=== PATIENT | male | born 1975 | race Caucasian/White ===

== ENCOUNTER 2024-05-25 09:43 | Outpatient (AMB) | payer OTHER, SELFPAY ==
--- NOTE | 2024-05-25 09:45 | A.OFFPC_ITS ---
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 A1C is 6.6 today. 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 ?? Prior PCP:? Dr Nicholas Cedeno CT Last office visit/CPE:?about a year Acute issue(s):? Diabetes -A1c today 05/25/24 6.6%. -? Low blood sugars ?? PMHx:?Diabetes, HLD, HTN, Tachycardia SurgHx:? Lasik FHx:? Dad: unknown. Mom: Pulmonary disease. pGF: DM, CAD, PR. Uncle: Early sudden cardiac . mAunt: Cancer SocHx:?Smokes Hookah. EtOH: 2-3 dr a night . No drugs PFSH Medical History (Updated 05/25/24 @ 15:39 by Cleveland Murguia MD) Diabetes Surgical History (Updated 05/25/24 @ 09:57 by Bessy Ham CMA) Hx of LASIK Family History (Updated 05/25/24 @ 10:00 by Bessy Ham CMA) Maternal Grandmother Diabetes Paternal Grandfather Heart attack Social History (Updated 05/25/24 @ 10:04 by Bessy Ham CMA) Household Members: Spouse Housing: House Are you a primary healthcare administration intern to a significant other at home: No Do you presently have visiting nurse or other home services: No Alcohol intake: current Alcohol type: hard liquor Comment: 2 scotches Patient Tobacco Use Status: Never used Tobacco e-Cigarette/Vaping Use: Never Used Agree to transfusion: Yes service: Yes (Not in this country) Current occupational status: employed Current occupation: [employer] Cognitive needs: No Hearing needs: No Vision needs: No Review of Systems Const Denies chills, Reports fatigue, Denies fever(s), Denies headache(s) and Denies weakness ENT Denies dizziness and Denies headache(s) Card Denies chest pain, Denies lightheadedness, Denies dyspnea and Denies other (Palpitations) Resp Denies cough, Denies dyspnea, Denies wheezing and Denies other ( shortness of breath) Musc Denies numbness and Denies tingling Neuro Denies dizziness, Denies headache(s), Denies numbness, Denies tingling, Denies paresthesias and Denies weakness Psych Denies anxiety and Denies depression Endo Reports fatigue Aller/Immun Denies wheezing Physical exam (Primary Care) Vital Signs: Last Vital Signs Pulse 88 05/25/24 09:46 BP 122/62 05/25/24 09:46 Pulse Ox 98 05/25/24 09:46 Oxygen Delivery Method Room Air 05/25/24 09:46 BMI result Body Mass Index 25.4 Tobacco/Smoking Status: Tobacco use Status Tobacco use date assessed 05/25/24 05/25/24 10:00 Patient Tobacco Use Status Never used Tobacco 05/25/24 10:04 e-Cigarette/Vaping Use Never Used 05/25/24 10:04 Const General: no acute distress and well developed Nutritional Appearance: well nourished Orientation/consciousness: patient oriented x3 [facility] Head: Yes normocephalic and Yes atraumatic Eyes General: appearance normal, both eyes and all related structures Pupils: Equal, round and reactive pupils present EOM: EOMs intact bilaterally Resp Effort & Inspection: normal respiratory effort Auscultation: clear to auscultation bilaterally Cardio Rate: regular rate Rhythm: regular rhythm Heart sounds: S1 normal heart sound present, S2 normal heart sound present, no gallops, no murmurs and no rubs Neuro General: patient oriented x3 and gait normal Cranial nerves: Yes Equal, round and reactive pupils present Psych Affect: normal affect Assessment and Plan Assessment & Plan (1) Diabetes: Code(s): E11.9 - Type 2 diabetes mellitus without complications Plan: A1c?6.6%?on?patient's?continuous?glucose?monitor.??Goal?is?less?than?7% Fairly?good?control?but?patient?notes?some?low?blood?sugars. He?does?not?always?eat?regular?meals Encouraged?regular?meals?and?snacks?if?necessary. If?that?is?not?helping?he?will?decrease?his?Ozempic?from?0.5?mg?to?0.25?mg?weekl y. (2) Hyperlipidemia: Code(s): E78.5 - Hyperlipidemia, unspecified Plan: Continue?rosuvastatin Check?labs (3) Hypertension: Code(s): I10 - Essential (primary) hypertension Plan: Blood?pressure?is?controlled. He?is?on?metoprolol?primarily?for?tachycardia He?can?trial?decreasing?this?as?he?sometimes?has?fatigue;?metoprolol trial?12.5?mg?daily (4) Fatigue: Code(s): R53.83 - Other fatigue Plan: Checking?labs?including?CBC?and?testosterone.??Also?thyroid,?electrolytes?and?li jorden?enzymes. Encouraged?patie nt?to?decrease?alcohol?intake?and?get?more?physiologic?sleep.??Also?encouraged?e xercise?earlier?in?his?day?to?help?with?sleep. (5) Difficulty sleeping: Code(s): G47.9 - Sleep disorder, unspecified Plan: As?above,?likely?secondary?to?alcohol?rebound?after?consuming?too?much?alcohol. Encouraged?weaning?down Encouraged?exercise?earlier?in?his?day?to?help?with?sleepiness (6) History of tachycardia: Code(s): Z87.898 - Personal history of other specified conditions Plan: EKG:??Normal?sinus?rhythm?with?HR?84?beats?per?minute?on?metoprolol,?sinus?arrhy thmia, normal?axis,?no?hypertrophy,?no?ST-T-wave?changes. Controlled?on?metoprolol No?change?to?regimen (7) Alcohol use disorder: Code(s): F10.90 - Alcohol use, unspecified, uncomplicated Plan: Encouraged?weaning?down?alcohol?use. (8) Laboratory exam ordered as part of routine general medical examination: Code(s): Z00.00 - Encounter for general adult medical examination without abnormal findings Plan: Check?lab Orders: Orders Comprehensive [place]. Panel Fast Today Z00.00 - Encounter for general adult medical examination without abnormal findings Prostate Specific Antigen Scr Today Z12.5 - Encounter for screening for malignant neoplasm of prostate TSH reflex Free T4 Today Z00.00 - Encounter for general adult medical examination without abnormal findings Testosterone, Free/Total Today R53.83 - Other fatigue Complete Blood Count Auto Diff Today R53.83 - Other fatigue, Z00.00 - Encounter for general adult medical examination without abnormal findings AMB EKG-In Office Today F10.90 - Alcohol use, unspecified, uncomplicated, I10 - Essential (primary) hypertension, R53.83 - Other fatigue, Z87.898 - Personal history of other specified conditions Lipid Panel Today Z00.00 - Encounter for general adult medical examination without abnormal findings Microalbumin, Random (w Creat) Today I10 - Essential (primary) hypertension UA and rflx microscopic Today Z00.00 - Encounter for general adult medical examination without abnormal findings Referrals Gastroenterology Referral Z12.11 - Encounter for screening for malignant neoplasm of colon Coding Level of Care Code New Pt Level 3 (78227) Diagnoses Diabetes E11.9 Hyperlipidemia E78.5 Hypertension I10 Fatigue R53.83 Difficulty sleeping G47.9 History of tachycardia Z87.898 Alcohol use disorder F10.90 Laboratory exam ordered as part of routine general medical examination Z00.00
[2024-05-25 09:46] VITALS: BP 122/62; PULSE 88; O2SAT 98; BMI 25.4
== END 2024-05-25 11:48 | disposition home or self-care (01) ==
PROVIDERS: PCP Family Medicine; Visit Provider Family Medicine
DX: E11.9 Type 2 diabetes mellitus without complications (principal); E78.5 Hyperlipidemia, unspecified; I10 Essential (primary) hypertension; R53.83 Other fatigue; G47.9 Sleep disorder, unspecified; Z87.898 Personal history of other specified conditions; F10.90 Alcohol use, unspecified, uncomplicated; Z00.00 Encounter for general adult medical examination without abnormal findings
CPT/HCPCS: 99203

== ENCOUNTER 2024-05-25 11:21 | Outpatient (REF) | payer OTHER, SELFPAY | END 2024-05-25 11:22 | disposition home or self-care (01) | LOC: HO.WFDLDS 11:21 | PROVIDERS: Visit Provider Family Medicine | DX: Z13.89 Encounter for screening for other disorder (principal) ==

== ENCOUNTER 2024-05-25 11:23 | Outpatient (REF) | payer OTHER, SELFPAY | END 2024-05-25 11:24 | disposition home or self-care (01) | LOC: HO.WFDLDS 11:23 | PROVIDERS: Visit Provider Family Medicine | DX: Z13.89 Encounter for screening for other disorder (principal) ==

== ENCOUNTER 2024-05-25 11:24 | Outpatient (REF) | payer OTHER, SELFPAY | END 2024-05-25 11:25 | disposition home or self-care (01) | LOC: HO.WFDLDS 11:24 | PROVIDERS: Visit Provider Family Medicine | DX: Z13.89 Encounter for screening for other disorder (principal) ==

== ENCOUNTER 2024-05-25 11:33 | Outpatient (REF) | payer OTHER, SELFPAY | END 2024-05-25 11:34 | disposition home or self-care (01) | LOC: HO.WFDLDS 11:33 | PROVIDERS: Visit Provider Family Medicine | DX: Z13.89 Encounter for screening for other disorder (principal) ==

== ENCOUNTER 2024-05-25 11:43 | Outpatient (REF) | payer OTHER, SELFPAY ==
[2024-05-25 14:11] LABS: Appearance Urine Turbid; Color Urine Yellow; Glucose Urine UA Negative (Negative); Leukocyte Esterase Urine Negative (Negative); Nitrite Urine Negative (Negative); PH 5.5 (5.0-9.0); Specific Gravity - Urine 1.025 (1.005-1.025); Urine Blood Negative (Negative); Urine Ketones Trace mg/dL (Negative); Urine Protein Trace mg/dL (Neg-Trace)
[2024-05-25 14:16] LABS: MANUAL DIFF FLAG NO
[2024-05-25 14:24] LABS: Basophils Percent Auto 0.9 % (0-2); Eosinophils Absolute Auto 0.2 X10*3/uL (0.0-0.4); Eosinophils Percent Auto 5.5 % (0-4); Hematocrit 43.2 % (42.0-52.0); Hemoglobin 14.8 g/dl (14.0-18.0); Imm Gran Abs Auto 0.07 X10*3/uL (0.00-0.03); Imm Gran Pct Auto 1.6 % (0.0-0.4); Lymphocytes Absolute Auto 1.4 X10*3/uL (1.2-4.9); Mean Corpuscular HGB Conc 34.3 g/dl (31.0-36.0); Mean Corpuscular Volume 96.4 fL (80.0-98.0); Mean Platelet Volume 10.5 fL (9.4-12.4); Monocytes Absolute Auto 0.4 X10*3/uL (0.1-1.2); Neutrophils Absolute Auto 2.3 x10*3/uL (2.0-8.3); Platelet Count 225 X10*3/uL (160-400); Red Blood Count 4.48 X10*6/uL (4.60-5.80); Red Cell Distribution Width 13.1 % (11.0-16.0); White Blood Count 4.4 X10*3/uL (4.8-10.8)
[2024-05-25 14:57] LABS: Creatinine Urine 232.72 mg/dL; Microalbum/Creatinine Ratio Ur 13.7 ug/mg cr (<30)
[2024-05-25 15:13] LABS: Prostate Specific Antigen Scr 0.99 ng/mL (<0.05-4.0)
[2024-05-25 15:17] LABS: Alanine Aminotransferase 62 U/L (0-40); Albumin Level 5.1 g/dL (3.5-5.0); Alkaline Phosphatase 57 U/L (39-117); Anion Gap 12 (12-20); Aspartate Amino Transferase 36 U/L (5-37); Bilirubin Total 0.4 mg/dL (0.0-1.0); Blood Urea Nitrogen 15 mg/dL (9-16); Calcium 9.7 mg/dL (8.4-10.2); Carbon Dioxide 26 mmol/L (22-29); Chloride 109 mmol/L (96-108); Cholesterol 156 mg/dL (<200); Estimated Glomerular Filt Rate > 60; Glucose Fasting 103 mg/dL (60-99); HDL Cholesterol 45 mg/dL (>40); LDL Cholesterol Calculated 47 mg/dL (<100); Potassium 4.1 mmol/L (3.3-5.1); Sodium 143 mmol/L (135-145); TSH reflex Free T4 1.12 uIU/mL (0.32-4.0); Total Protein 8.5 g/dL (6.5-8.0); Triglycerides 323 mg/dL (<150)
[2024-05-30 12:43] LABS: Testosterone, Free 68.6 pg/mL (35.0-155.0); Testosterone, Total 293 ng/dL (250-1100)
== END 2024-05-25 11:44 | disposition home or self-care (01) ==
LOC: HO.WFDLDS 11:43
PROVIDERS: Visit Provider Family Medicine
DX: Z00.00 Encounter for general adult medical examination without abnormal findings (principal); I10 Essential (primary) hypertension; R53.83 Other fatigue; Z12.5 Encounter for screening for malignant neoplasm of prostate
CPT/HCPCS: 36415; 80053; 80061; 81003; 82043; 82570; 84153; 84402; 84403; 84443; 85025

== ENCOUNTER 2024-06-06 08:06 | Outpatient (AMB) | payer OTHER, SELFPAY ==
--- NOTE | 2024-06-06 08:09 | MHC.PC.OV ---
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 Reports that he became ill about 10 days ago after smoking at a [employer] bar with a group of people. Not only himself but the entire group became ill with URI symptoms. His symptoms include sore throat, pressure behind the eyes, pain in cheeks, pressure in his ears, thick nasal discharge. Initially was able to expectorate the nasal discharge however reports he has not able at this time as the secretions are so thick. His symptoms have worsened since onset. He is tried several kgio-gwx-enoncmz medications without relief. He is flying internationally on the 18th of this month. Awake alert NAD Sclera and conjunctiva clear bilat Nares with mucoid d/c , turbinates pale & edematous, + maxillary sinus tenderness with palpation bilat TM intact bilat w/ mucoid effusions R>L MMM, pharynx WNL, + PND Tachycardic, regular rythym LS CTAB Plan: Augmentin Flonase and PRN afrin for travel only. [facility] Medical History (Updated 05/25/24 @ 15:39 by Cleveland Murguia MD) Diabetes Surgical History (Updated 05/25/24 @ 09:57 by Bessy Ham CMA) Hx of LASIK Family History (Updated 05/25/24 @ 10:00 by Bessy Ham CMA) Maternal Grandmother Diabetes Paternal Grandfather Heart attack Social History (Updated 05/25/24 @ 10:04 by Bessy Ham CMA) Household Members: Spouse Both parents involved: No Caregiver staying overnight: No Housing: House Are you a primary aged or disabled carer to a significant other at home: No Do you presently have visiting nurse or other home services: No Alcohol intake: current Alcohol type: hard liquor Comment: 2 scotches Patient Tobacco Use Status: Never used Tobacco e-Cigarette/Vaping Use: Never Used Agree to transfusion: Yes service: Yes (Not in this country) Current occupational status: employed Current occupation: [employer] Cognitive needs: No Hearing needs: No Vision needs: No Physical exam (Primary Care) Vital Signs: Last Vital Signs Temp 97.7 F 06/06/24 08:14 Pulse 110 H 06/06/24 08:14 BP 110/82 06/06/24 08:14 Pulse Ox 96 06/06/24 08:14 Oxygen Delivery Method Room Air 06/06/24 08:14 Tobacco/Smoking Status: Tobacco use Status Tobacco use date assessed 05/25/24 06/06/24 08:11 Patient Tobacco Use Status Never used Tobacco 06/06/24 08:11 e-Cigarette/Vaping Use Never Used 06/06/24 08:11 Assessment and Plan Assessment & Plan (1) Acute bacterial sinusitis: Code(s): J01.90 - Acute sinusitis, unspecified; B96.89 - Other specified bacterial agents as the cause of diseases classified elsewhere Medications: New amoxicillin-pot clavulanate 875-125 mg 1 tab PO BID 7 days 14 tabs 0RF fluticasone propionate 50 mcg/actuation administer into each nostril 1 spray intranasal BID 16 grams 0RF Patient Instructions: Consider using Afrin nasal decongestant spray 30 minute before you fly as needed to decompress ears and nose to provide comfort while flying otherwise do NOT use Afrin What Is It? Sinuses are air-filled spaces behind the bones of the upper face: between the eyes and behind the forehead, nose and cheeks. The lining of the sinuses are made up of cells with tiny hairs on their surfaces called cilia. Other cells in the lining produce mucus. The mucus traps germs and pollutants and the cilia push the mucus out through narrow sinus openings into the nose. When the sinuses become inflamed or infected, the mucus thickens and clogs the openings to one or more sinuses. Fluid builds up inside the sinuses causing increased pressure. Also bacteria can become trapped, multiply and infect the lining. This is sinusitis. Prevention There are some measures you can take to decrease your risk of developing sinusitis. If you smoke cigarettes, you should quit. The smoke can irritate nasal passageways and increase the likelihood of infection. Nasal allergies can trigger sinus infections, too. By identifying the allergen (the substance causing the allergic reaction) and avoiding it, you can help prevent sinusitis. If you have congestion from a cold or allergies, the following may help to reduce the risk of developing sinusitis: Drink lots of water. This thins nasal secretions and keeps mucous membranes moist. Use steam to soothe nasal passages. Breathe deeply while standing in a hot shower, or inhale the vapor from a basin filled with hot water while holding a towel over your head. Avoid blowing your nose with great force, which can push bacteria into the sinuses. Some doctors advise periodic home nasal washings to clear secretions. This may help prevent, and also treat, sinus infections. Treatment Many sinus infections improve without treatment. However, several medications may speed recovery and reduce the chance that an infection will become chronic. Decongestants - Congestion often triggers sinus infections, and decongestants can open the sinuses and allow them to drain. Several are available: Pseudoephedrine (Sudafed) is available without prescription, alone or in combination with other medications in multi-symptom cold and sinus remedies. Pseudoephedrine can cause insomnia, racing pulse and jitteriness. Do not use if you have high blood pressure or a heart condition. Phenylephrine (such as Sudafed PE) is an alternative dptr-gnm-mcfaezb oral decongestant. If you take products containing oral phenylephrine, check with the pharmacist to be certain there is no interaction with other medications you take. Oxymetazoline (Lasha Joyce and others) and phenylephrine (Bryan-Synephrine and others) are found in nasal sprays. They are effective and may be less likely to cause the side effects seen with pseudoephedrine. However, using a nasal decongestant for more than three days can cause worse symptoms when you stop the medication. This is called the rebound effect. Antihistamines - These medications help to relieve the symptoms of nasal allergies that lead to inflammation and infections. However, some doctors advise against using antihistamines during a sinus infection because they can cause excessive drying and slow the drainage process. Leoo-aak-vzzcohi antihistamines include diphenhydramine (Benadryl and others), chlorpheniramine (Chlor-Trimeton and others) and loratadine (Claritin). Fexofenadine (Xiomara) and cetrizine (Zyrtec) are available by prescription. Nasal steroids - Anti-inflammatory sprays such as mometasone (Nasonex) and fluticasone (Flonase), both available by prescription, reduce swelling of nasal membranes. Like antihistamines, nasal steroids can be most useful for those who have nasal allergies. Nasal steroids tend to produce less drying than antihistamines. Unlike nasal decongestants, nasal steroids can be used for prolonged periods. Saline nasal sprays - These salt-water sprays are safe to use and can provide some relief by adding moisture to the nasal passages, thinning mucus secretions and helping to flush out any bacteria that may be present. Pain relievers - Acetaminophen (Tylenol), ibuprofen (Advil, Motrin and others) or naproxen (Aleve) can be taken sinus pain. Antibiotics - Your doctor may prescribe an antibiotic if he or she suspects that a bacterial infection is causing your sinusitis. If you start taking an antibiotic, complete the entire course so that the infection is completely killed off. Not all cases of sinusitis require antibiotic treatment: Talk with your doctor about whether an antibiotic is right for you. Keep in mind that antibiotics can cause side effects, such as allergic reactions, rash and diarrhea. In addition, overusing antibiotics eventually leads to the spread of bacteria that no longer can be killed by the most commonly prescribed antibiotics. When To Call A Professional Contact a doctor if you experience facial pain along with a headache and fever, cold symptoms that last longer than seven to 10 days, or persistent green discharge from the nose. If your symptoms don't improve within a week of beginning treatment, call your doctor. Call sooner if symptoms are getting worse. If you have repeated bouts of acute sinusitis, you may have allergies or another treatable cause of sinus congestion. Ask your doctor for advice. Coding Level of Care Code Est Pt Level 3 (58485) Diagnoses Acute bacterial sinusitis J01.90; B96.89
[2024-06-06 08:14] VITALS: BP 110/82; PULSE 110; TEMP 36.5; O2SAT 96
== END 2024-06-06 08:29 | disposition home or self-care (01) ==
PROVIDERS: PCP Family Medicine; Visit Provider Nurse Practitioner Family
DX: J01.90 Acute sinusitis, unspecified (principal); B96.89 Other specified bacterial agents as the cause of diseases classified elsewhere
CPT/HCPCS: 99213

== ENCOUNTER 2024-07-31 13:22 | Outpatient (AMB) | payer OTHER, SELFPAY ==
[2024-07-31 13:30] VITALS: BP 116/77; PULSE 105; BMI 24.6
--- NOTE | 2024-07-31 13:30 | MHC.OFFVIS ---
Vital Signs 07/31/24 13:30 Height 5 ft 8 in Weight 161 lb 13.109 oz BMI 24.6 BP 116/77 Blood Pressure Location Rt brachial Position Sitting Pulse 105 H Intake Visit Reasons: Encounter for screening colonoscopy Intake Note: Jef presents as a new patient for colonoscopy screening. CC: Patient reports that he has been on Ozempic for about 6 months. He c/o nausea, constipation, diarrhea, abdominal pain, and GERD. He states that he was diagnosed with diverticulosis by a previous. Denies having other GI symptoms. Public Health Nurse Required: No Accompanied by: Self / Same As Patient Allergies fruits Allergy (Severe, Uncoded 07/31/24 13:36) Anaphylaxis nuts Allergy (Severe, Uncoded 07/31/24 13:36) Anaphylaxis HPI HPI Encounter for screening colonoscopy: Details: 49-year-old male here for preprocedural meeting to discuss a screening colonoscopy. He is referred by Zaida Diaz. PMX Hypertension High cholesterol Alcohol use disorder Tachycardia Diabetes Insomnia * SURGICAL HISTORY Lasix surgery BIlateral inguinal hernia * ALLERGIES: NKDA * Pneumoflex Systems LABS: Laboratory Tests 05/25/24 11:38 WBC 4.4 L Hgb 14.8 Hct 43.2 Plt Count 225 Estimated GFR > 60 Total Bilirubin 0.4 AST 36 ALT 62 H Alkaline Phosphatase 57 TSH 1.12 TODAY'S VISIT This is his first colonoscopy. he is having some bowel irritability with soft stools but incomplete evacuation several times a day. Sent senna for trial. No upper GI problems. He denies any cardiac or respiratory problems. There are no prior problems with anesthesia or sedation. NO known FHX crc or polyps. Return office visit as needed if the senna it does not work for him and or after the colonoscopy [facility] Medical History (Updated 07/31/24 @ 14:11 by STACEY Solomon) Laboratory exam ordered as part of routine general medical examination Screening for colon cancer Diabetes Surgical History (Updated 07/31/24 @ 16:05 by STACEY Solomon) H/O bilateral inguinal hernia repair Hx of LASIK Family History Maternal Grandmother Diabetes Paternal Grandfather Heart attack Social History (Updated 07/31/24 @ 13:38 by PERRY Noonan) Household Members: Spouse Both parents involved: No Caregiver staying overnight: No Housing: House Are you a primary insurance healthcare consultant to a significant other at home: No Do you presently have visiting nurse or other home services: No Alcohol intake: current Alcohol type: hard liquor Comment: 2 scotches Patient Tobacco Use Status: Never used Tobacco e-Cigarette/Vaping Use: Never Used Use of substances other than those prescribed or required for medical reasons: No Agree to transfusion: Yes service: Yes (Not in this country) Current occupational status: employed Current occupation: [employer] Cognitive needs: No Hearing needs: No Vision needs: No Review of Systems Const Denies fatigue, Denies fever(s), Denies night sweats, Denies poor appetite and Denies weight loss ENT Reports Normal hearing present, Denies dental pain, Denies dysphagia, Denies hearing loss, Denies mouth pain, Denies odynophagia, Denies throat swelling, Denies tongue swelling and Reports other (Dentition adequate) Card Reports no additional complaints Resp Reports no additional complaints GI Details: Denies abdominal pain, Denies melena, Denies bloating, Denies hematochezia, Reports constipation, Denies GI cramping, Denies dysphagia, Denies excessive flatus, Denies early satiety, Denies heartburn, Denies diarrhea, Denies nausea, Denies odynophagia, Denies vomiting and Denies hematemesis Skin/Breast Denies pruritus, Denies lesions, Denies rash and Denies jaundice Neuro Reports Normal hearing present and Denies Abnormal speech present Endo Denies fatigue Aller/Immun Denies throat swelling and Denies tongue swelling Physical Exam Vital Signs: Last Vital Signs Pulse 105 H 07/31/24 13:30 BP 116/77 07/31/24 13:30 BMI result Body Mass Index 24.6 Const General: cooperative, no acute distress, well developed and well groomed Nutritional Appearance: average body habitus and well nourished Orientation/consciousness: oriented to person, oriented to place and oriented to time Limitations: No language barrier HEENT Head: Yes normocephalic and Yes atraumatic Eyes General: appearance normal, both eyes and all related structures Pupils: Equal, round and reactive pupils present Neck Neck: Yes normal visual inspection and Yes no lymphadenopathy Thyroid: Thyroid normal Resp Effort & Inspection: normal respiratory effort and able to speak in complete sentences Auscultation: clear to auscultation bilaterally Cardio Rate: regular rate Rhythm: regular rhythm Heart sounds: Normal, physiologic split S2 sound present Peripheral pulses: radial pulses present and posterior tibial pulses present GI Inspection: No distended and No Abdominal panniculus present Palpation (GI): Soft to palpation, nontender, no guarding, not rigid and No hepatosplenomegaly present Percussion: Yes normal to percussion Auscultation: normal bowel sounds Rectal Exam - Male: Yes deferred Skin General skin exam: no rashes or lesions noted, turgor normal, skin not dry, no jaundice, No spider nevi and no striae Rashes: no rashes Nails: normal Neuro General: oriented to person, oriented to place and oriented to time Cranial nerves: Yes Equal, round and reactive pupils present and Yes Normal hearing present Speech: No Abnormal speech present Extrem General: Yes normal to inspection, No clubbing, No cyanosis and No edema Psych Appearance: grossly normal and well kempt Mental Status: mental status grossly normal Speech and movement: Normal speech and movement present Affect: normal affect Attitude: cooperative Thought process: Normal thought process present and not confabulating Thought content: Normal thought content present Insight: Fair insight present (Psych) Judgement: Fair judgement present (Psych) Results Reviewed Results Reviewed: Laboratory Tests 05/25/24 11:38 WBC 4.4 L Hgb 14.8 Hct 43.2 Plt Count 225 Estimated GFR > 60 Total Bilirubin 0.4 AST 36 ALT 62 H Alkaline Phosphatase 57 TSH 1.12 Assessment & Plan Assessment & Plan (1) Encounter for screening colonoscopy: Code(s): Z12.11 - Encounter for screening for malignant neoplasm of colon (2) Pre-op examination: Code(s): Z01.818 - Encounter for other preprocedural examination Category: Medical (3) Chronic idiopathic constipation: Code(s): K59.04 - Chronic idiopathic constipation Category: Medical Plan This is his first colonoscopy. he is having some bowel irritability with soft stools but incomplete evacuation several times a day. Sent senna for trial. No upper GI problems. He denies any cardiac or respiratory problems. There are no prior problems with anesthesia or sedation. NO known FHX crc or polyps. Return office visit as needed if the senna it does not work for him and or after the colonoscopy Orders: Orders Colonoscopy - GI Use Only Today Z01.818 - Encounter for other preprocedural examination Medications: New peg 3350-electrolytes 236-22.74-6.74 -5.86 gram (Golytely) until fecal effluent is clear; do not exceed a total volume of 2,000 mL 240 mL PO Q10M 1 day 4,000 mL 0RF Z12.11 - Encounter for screening for malignant neoplasm of colon bisacodyl (Dulcolax (bisacodyl)) 10 mg (2 x 5 mg) PO BEDTIME 2 days 4 tabs 0RF sennosides (Senna Laxative) 17.2 mg (2 x 8.6 mg) PO BEDTIME 60 tabs 6RF K59.04 - Chronic idiopathic constipation Coding Level of Care Code New Pt Level 3 (39558) Diagnoses Encounter for screening colonoscopy Z12.11 Pre-op examination Z01.818 Chronic idiopathic constipation K59.04
== END 2024-07-31 14:16 | disposition home or self-care (01) ==
PROVIDERS: PCP Family Medicine; Referring Provider Family Medicine; Visit Provider Nurse Practitioner
DX: Z01.818 Encounter for other preprocedural examination (principal); Z12.11 Encounter for screening for malignant neoplasm of colon; K59.04 Chronic idiopathic constipation
CPT/HCPCS: 99202

== ENCOUNTER → 2024-07-31 13:22 | Outpatient (BNVA) | payer OTHER, SELFPAY | PROVIDERS: PCP Family Medicine; Visit Provider Nurse Practitioner ==

== ENCOUNTER 2024-08-17 14:55 | Outpatient (AMB) | payer OTHER, SELFPAY ==
--- NOTE | 2024-08-17 15:04 | A.OFFPC_ITS ---
Vital Signs 08/17/24 15:08 Height 5 ft 8 in Weight 167 lb 6 oz BMI 25.4 BP 110/70 Blood Pressure Location Rt brachial Position Sitting Respiration 16 Pulse 104 H Pulse Source Pulse Oximeter Temp 97.7 F Temp Source Tympanic Pulse Oximetry (%) 98 Oxygen Delivery Method Room Air Intake Visit Reasons: annual Intake Note: CPE Allergies fruits Allergy (Severe, Uncoded 07/31/24 13:36) Anaphylaxis nuts Allergy (Severe, Uncoded 07/31/24 13:36) Anaphylaxis Tobacco use date assessed: 05/25/24 Dental Screening Dental Screen Date: 08/17/24 Did you have a dental visit in the last 12 months?: Yes Did you have a dental problem in the last 6 months where you did not have access to dental care?: No Was dental information given to patient?: Patient has dentist [facility] Medical History (Updated 08/17/24 @ 15:49 by Cleveland Murguia MD) Screening for colon cancer Laboratory exam ordered as part of routine general medical examination Diabetes Surgical History (Updated 07/31/24 @ 16:05 by STACEY Solomon) H/O bilateral inguinal hernia repair Hx of LASIK Family History Maternal Grandmother Diabetes Paternal Grandfather Heart attack Social History (Updated 08/17/24 @ 15:06 by Debbie Yeh MA) Household Members: Spouse Both parents involved: No Caregiver staying overnight: No Housing: House Are you a primary managed care nurse to a significant other at home: No Do you presently have visiting nurse or other home services: No Alcohol intake: current Alcohol type: hard liquor Comment: 2 scotches Patient Tobacco Use Status: Never used Tobacco e-Cigarette/Vaping Use: Never Used Agree to transfusion: Yes service: Yes (Not in this country) Current occupational status: employed Current occupation: [employer] Cognitive needs: No Hearing needs: No Vision needs: No Questionnaire PHQ-9 Over the last 2 weeks, how often have you been bothered by any of the following problems? 1. Little interest or pleasure in doing things: several days 2. Feeling down, depressed, or hopeless: not at all 3. Trouble falling or staying asleep, or sleeping too much: several days 4. Feeling tired or having little energy: not at all 5. Poor appetite or overeating: not at all 6. Feeling bad about yourself - or that you are a failure or have let yourself or your family down: not at all 7. Trouble concentrating on things, such as reading the newspaper or watching television: not at all 8. Moving or speaking so slowly that other people could have noticed. Or the opposite - being so fidgety or restless that you have been moving around a lot more than usual: not at all 9. Thoughts that you would be better off or of hurting yourself in some way: not at all Total score: 2 Depression Screening Interpretation: Negative Depression Screening Done: Yes 63128 - PHQ-9 Billing: Yes Source: Developed by Drs. Russell Sharma, Meghan Ghosh, Josh Pride and colleagues, with an educational linsey from [employer]. Thrive Questionnaire Date Thrive assessed: 08/17/24 I am a: Patient What is your living situation today?: I have a steady place to live Within the past 12 months, did the food you bought not last and you didn't have the money to get more?: Never true Within the past 12 months, did you worry whether your food would run out before you got money to buy more?: Never true Do you have trouble paying for medicines?: No Do you have trouble getting transportation to medical appointments?: No Do you have trouble paying your heating and electricity bill?: No Do you have trouble taking care of your child, family member or friend?: No Do you have trouble with day-to-day activities such as bathing, preparing meals, shopping, managing finances, etc.?: No Are you currently unemployed and looking for a job?: No Are you interested in more education?: No Currently or been in a relationship where the following occur: No concerns reported THRIVE Score: 0 AUDIT C Alcohol Use Questionnaire (AUDIT-C) 1. How often do you have a drink containing alcohol?: 4 or more times a week 2. How many drinks containing alcohol do you have on a typical day when you are drinking?: 3 or 4 3. How often do you have six or more drinks on one occasion?: Monthly Total Score: 7 DEENA-7 AMB Questionnaire DEENA-7 Date DEENA - 7 assessed: 08/17/24 Feeling nervous, anxious, or on edge: 0 = Not at all Not being able to stop or control worryin = Not at all Worrying too much about different things: 0 = Not at all Trouble relaxin = Not at all Being so restless that it is hard to sit still: 0 = Not at all Becoming easily annoyed or irritable: 0 = Not at all Feeling afraid as if something awful might happen: 0 = Not at all Total DEENA-7 score (0-4 normal; 5-9 mild; 10-14 moderate; 15-21 severe): 0 Source: Developed by Drs. Russell Sharma, Meghan Ghosh, Josh Pride and colleagues, with an educational linsey from [employer]. DEENA-7 Assessment Billing DEENA-7 Assessment Tool: DEENA-7 Assessment 52940 Physical exam (Primary Care) Vital Signs: Last Vital Signs Temp 97.7 F 08/17/24 15:08 Pulse 104 H 08/17/24 15:08 Resp 16 08/17/24 15:08 BP 110/70 08/17/24 15:08 Pulse Ox 98 08/17/24 15:08 Oxygen Delivery Method Room Air 08/17/24 15:08 BMI result Body Mass Index 25.4 Tobacco/Smoking Status: Tobacco use Status Tobacco use date assessed 05/25/24 08/17/24 15:10 Patient Tobacco Use Status Never used Tobacco 08/17/24 15:10 e-Cigarette/Vaping Use Never Used 08/17/24 15:10 PHQ-9: PHQ-9 Score PHQ-9: Total score 2 08/17/24 15:10 Depression Screening Interpretation: Negative Thrive Assessment: Date of Thrive Assessment Date Thrive assessed 08/17/24 08/17/24 15:10 Currently or been in a relationship where the following occur: No concerns reported Assessment and Plan Assessment & Plan (1) Adult general medical exam: Code(s): Z00.00 - Encounter for general adult medical examination without abnormal findings Plan: 49-year-old?male?presents?for?complete?physical?exam Encouraged?healthy?diet?with?active?lifestyle?and?plenty?of?exercise (2) Elevated transaminase level: Code(s): R74.01 - Elevation of levels of liver transaminase levels Plan: Mildly?elevated?liver?enzyme Patient?drinks?alcohol?daily?and?he?is?working?on?decreasing?this Will ?recheck?this?with?next?blood?draw?and?if?the?same?or?higher,?will?get?an?ultras ound?of?his?liver (3) Hypertriglyceridemia: Code(s): E78.1 - Pure hyperglyceridemia Plan: Triglycerides?are?quite?high?despite?being?on?rosuvastatin. Will?recheck?this. (4) GERD (gastroesophageal reflux disease): Code(s): K21.9 - Gastro-esophageal reflux disease without esophagitis Plan: Start?omeprazole Follow-up?with?GI?as?recommended (5) Hypertension: Code(s): I10 - Essential (primary) hypertension Plan: Blood?pressure?is?controlled.??Goal?is?less?than?140/90 Continue?current?medications (6) Diabetes: Code(s): E11.9 - Type 2 diabetes mellitus without complications Plan: Patient?has?continuous?glucose?monitor?and?estimated?A1c?is?around?6.3% Continue?Ozempic Encouraged?diet?lower?in?sugars?and?starches (7) Hyperlipidemia: Code(s): E78.5 - Hyperlipidemia, unspecified Plan: LDL?cholesterol?is?well?controlled?on?rosuvastatin Triglycerides?are?too?high?however.??See?above (8) Alcohol use disorder: Code(s): F10.90 - Alcohol use, unspecified, uncomplicated Plan: Patient?is?working?at?decreasing?alcohol?intake Encouraged?weaning?and?cessation (9) Screening for prostate cancer: Code(s): Z12.5 - Encounter for screening for malignant neoplasm of prostate Plan: PSA?is?within?normal?range Will?continue?annual?screening (10) Screening for colon cancer: Code(s): Z12.11 - Encounter for screening for malignant neoplasm of colon Plan: Followed?by?[facility]?and?has?an?appointment?coming?up?in?a?few?month s. Follow-up?with?GI?as?recommended Orders: Orders Comprehensive [place]. Panel Fast Today R74.01 - Elevation of levels of liver transaminase levels, Z00.00 - Encounter for general adult medical examination without abnormal findings Lipid Panel Today E78.1 - Pure hyperglyceridemia, Z00.00 - Encounter for general adult medical examination without abnormal findings Medications: New omeprazole 20 mg PO DAILY 30 days 30 caps 3RF Changed From semaglutide (Ozempic) subcut To semaglutide (Ozempic) 0.5 mg (0.736 mL) subcut QWEEK 28 days 2.944 mL 3RF Coding Level of Care Code Est Pt Prev Care 40-64y(12954) Diagnoses Adult general medical exam Z00.00 Elevated transaminase level R74.01 Hypertriglyceridemia E78.1 GERD (gastroesophageal reflux disease) K21.9 Hypertension I10 Diabetes E11.9 Hyperlipidemia E78.5 Alcohol use disorder F10.90 Screening for prostate cancer Z12.5 Screening for colon cancer Z12.11 Additional Codes DEENA-7 Assessment Billing - DEENA-7 Assessment Tool: DEENA-7 Assessment [id number] ([id number])
[2024-08-17 15:08] VITALS: BP 110/70; PULSE 104; RESP 16; TEMP 36.5; O2SAT 98; BMI 25.4
== END 2024-08-17 15:47 | disposition home or self-care (01) ==
PROVIDERS: PCP Family Medicine; Visit Provider Family Medicine
DX: Z00.00 Encounter for general adult medical examination without abnormal findings (principal); E11.69 Type 2 diabetes mellitus with other specified complication; R74.01 Elevation of levels of liver transaminase levels; E78.1 Pure hyperglyceridemia; K21.9 Gastro-esophageal reflux disease without esophagitis; I10 Essential (primary) hypertension; E78.5 Hyperlipidemia, unspecified; F10.90 Alcohol use, unspecified, uncomplicated; Z12.5 Encounter for screening for malignant neoplasm of prostate; Z12.11 Encounter for screening for malignant neoplasm of colon

== ENCOUNTER → 2024-08-17 14:55 | Outpatient (BNVA) | payer OTHER, SELFPAY | PROVIDERS: PCP Family Medicine; Visit Provider Family Medicine | DX: Z00.01 Encounter for general adult medical examination with abnormal findings (principal); R74.01 Elevation of levels of liver transaminase levels; E78.1 Pure hyperglyceridemia; K21.9 Gastro-esophageal reflux disease without esophagitis; I10 Essential (primary) hypertension; E11.9 Type 2 diabetes mellitus without complications; E78.5 Hyperlipidemia, unspecified; F10.90 Alcohol use, unspecified, uncomplicated; Z79.85 Long-term (current) use of injectable non-insulin antidiabetic drugs | CPT/HCPCS: 96127 ==

== ENCOUNTER 2025-01-11 08:53 | Day surgery (SDC) | payer OTHER, SELFPAY ==
--- NOTE | 2025-01-10 09:33 | HO.ANESPROP2 ---
Documented by User: Meghan Keenan NP 01/10/25 09:33 HPI - Anesthesia Eval Consult details Narrative: 49yo M for Colonoscopy Anesthesia Pre-Procedure Meds Is the patient on any of the following meds?: GLP1/DPP4 PMFSH Active Problems Active Problems: All Active Problems GERD (gastroesophageal reflux disease) (Acute) Screening for prostate cancer (Acute) Screening for colon cancer (Acute) Adult general medical exam (Acute) Hypertriglyceridemia (Acute) Elevated transaminase level (Acute) Chronic idiopathic constipation (Acute) Pre-op examination (Acute) Alcohol use disorder (Acute) Fatigue (Acute) Difficulty sleeping (Acute) History of tachycardia (Acute) Hypertension (Acute) Hyperlipidemia (Acute) Diabetes (Acute) Past Medical History Medical History Diverticulitis GERD (gastroesophageal reflux disease) Elevated cholesterol HTN (hypertension) Screening for colon cancer Laboratory exam ordered as part of routine general medical examination Diabetes Family History Family History Maternal Grandmother Diabetes Paternal Grandfather Heart attack Surgical History Surgical History H/O bilateral inguinal hernia repair Hx of LASIK Social History Social History Household Members: Spouse Housing: House Are you a primary aged or disabled care worker to a significant other at home: No Do you presently have visiting nurse or other home services: No Alcohol intake: current Alcohol type: hard liquor Comment: 2 scotches Patient Tobacco Use Status: Never used Tobacco e-Cigarette/Vaping Use: Never Used Use of substances other than those prescribed or required for medical reasons: No Agree to transfusion: Yes Are you DNR?: No Advance Directives: Yes Advance Directives Information Provided: Yes Advance Directives on File: No Advance Directives Date on File: 01/11/25 service: Yes (Not in this country) Current occupational status: employed Current occupation: [employer] Cognitive needs: No Hearing needs: No Vision needs: No Meds Allergies Allergy/AdvReac Type Severity Reaction Status Date / Time fruits Allergy Severe Anaphylaxis Uncoded 01/11/25 09:46 nuts Allergy Severe Anaphylaxis Uncoded 01/11/25 09:46 Home Medications ?Medication ?Instructions ?Recorded ?Confirmed ?Last Taken ?Type metoprolol succinate 25 mg 25 mg PO DAILY 05/25/24 01/11/25 Unknown History tablet,extended release 24 hr rosuvastatin 20 mg tablet 20 mg PO BEDTIME 05/25/24 01/11/25 Unknown History valsartan 160 mg tablet 160 mg PO DAILY 05/25/24 01/11/25 Unknown History omeprazole 20 mg capsule,delayed 20 mg PO DAILY PRN Heartburn 01/11/25 01/11/25 Unknown History release sennosides 8.6 mg tablet (Senna 17.2 mg PO BEDTIME PRN Constipation 01/11/25 01/11/25 Unknown History Laxative) Assessment and Plan Assessment Anesthesia Assessment: Chart Reviewed Documented by User: Belen Tirado MD 01/11/25 11:18 HPI - Anesthesia Eval Anesthesia Pre-Procedure Meds Is the patient on any of the following meds?: GLP1/DPP4 (Last dose of semaglutide 01/01/25) PMFSH Active Problems Active Problems: All Active Problems GERD (gastroesophageal reflux disease) (Acute) Screening for prostate cancer (Acute) Screening for colon cancer (Acute) Adult general medical exam (Acute) Hypertriglyceridemia (Acute) Elevated transaminase level (Acute) Chronic idiopathic constipation (Acute) Pre-op examination (Acute) Alcohol use disorder - minimum of 2 scotches per day. Drinks till he falls asleep. Last drank 3 days ago Fatigue (Acute) Difficulty sleeping (Acute) History of tachycardia (Acute)- HR 100s- 110s. On metoprolol. Did not take today Hypertension (Acute) Hyperlipidemia (Acute) Diabetes (Acute) Past Medical History Medical History Diverticulitis GERD (gastroesophageal reflux disease) Elevated cholesterol HTN (hypertension) Screening for colon cancer Laboratory exam ordered as part of routine general medical examination Diabetes Family History Family History Maternal Grandmother Diabetes Paternal Grandfather Heart attack Family history of problems with anesthesia: No Surgical History Surgical History H/O bilateral inguinal hernia repair Hx of LASIK History of Problems with Anesthesia: No Social History Social History Household Members: Spouse Housing: House Are you a primary aged or disabled care worker to a significant other at home: No Do you presently have visiting nurse or other home services: No Alcohol intake: current Alcohol type: hard liquor Comment: 2 scotches Patient Tobacco Use Status: Never used Tobacco e-Cigarette/Vaping Use: Never Used Use of substances other than those prescribed or required for medical reasons: No Agree to transfusion: Yes Are you DNR?: No Advance Directives: Yes Advance Directives Information Provided: Yes Advance Directives on File: No Advance Directives Date on File: 01/11/25 service: Yes (Not in this country) Current occupational status: employed Current occupation: [employer] Cognitive needs: No Hearing needs: No Vision needs: No Meds Allergies Allergy/AdvReac Type Severity Reaction Status Date / Time fruits Allergy Severe Anaphylaxis Uncoded 01/11/25 09:46 nuts Allergy Severe Anaphylaxis Uncoded 01/11/25 09:46 Home Medications ?Medication ?Instructions ?Recorded ?Confirmed ?Last Taken ?Type metoprolol succinate 25 mg 25 mg PO DAILY 05/25/24 01/11/25 Unknown History tablet,extended release 24 hr rosuvastatin 20 mg tablet 20 mg PO BEDTIME 05/25/24 01/11/25 Unknown History valsartan 160 mg tablet 160 mg PO DAILY 05/25/24 01/11/25 Unknown History omeprazole 20 mg capsule,delayed 20 mg PO DAILY PRN Heartburn 01/11/25 01/11/25 Unknown History release sennosides 8.6 mg tablet (Senna 17.2 mg PO BEDTIME PRN Constipation 01/11/25 01/11/25 Unknown History Laxative) Exam Height,Weight and Vital Signs: Height 5 ft 8 in Weight 72.8 kg Vital Signs Temp Pulse Resp BP Pulse Ox O2 Del Method 01/11/25 10:09 97.7 F 104 H 15 118/94 H 96 Room Air Pertinent Lab Results Pertinent Lab Results: Lab Results 01/11/25 Range/Units 10:05 POC Glucose 128 H (60-115) mg/dL Airway Mallampati Class: II TM Dist: >3cm (Slightly receding chin) Neck ROM: Full Loose/Missing/Broken Teeth: Yes (Missing molars. Denies broken or loose teeth) Heart: RRR+ ?murmur Lungs: CTAB Assessment and Plan Assessment Anesthesia Assessment: Anesthesia Plan Discussed and Chart Reviewed Final Anesthetic Review Family History of Problems with Anesthesia: No History of Problems with Anesthesia: No NPO: Yes ASA Class: III Final Preanesthetic Review: No Changes in Pt Med Stat, Meds/Allgs Chart Reviewed, Consent Obtained/Reviewed and Anes Risks/Benef Reviewed Patient Risk: Intermediate Procedure Risk: Low Assessment/Block/Sedation in SS: Assess/Block/Sedation-SS Anesthetic Plan Anesthetic Plan: TIVA Disposition: Standard PACU
[2025-01-11 09:49] VITALS: BMI 24.4
--- NOTE | 2025-01-11 09:52 | MHC.SHP ---
Pre-Procedural Eval Section A - 24 Hr Update-Section A only Date of Service: 01/11/25 The patient is an INPATIENT: No The patient has been examined within 24 hours of the surgical procedure. The History & Physical has been completed within 30 days and I have reviewed it.: No Section B - Complete if H&P > 30 days Chief Complaint: Colon cancer screening Relevant Family History (Specify if Yes): No Relevant Social History: None Present Medications: see Short Stay Collaborative assessment Medical History: Significant History (Hypertension High cholesterol Alcohol use disorder Tachycardia Diabetes Insomnia) History of Previous Operations: Relevant previous surgery/procedure and date(s) (H/O bilateral inguinal hernia repair Hx of LASIK) Allergies: Allergies Allergy/AdvReac Type Severity Reaction Status Date / Time fruits Allergy Severe Anaphylaxis Uncoded 01/11/25 09:46 nuts Allergy Severe Anaphylaxis Uncoded 01/11/25 09:46 Review of Systems Sugical H&P ROS: Negative: Constitution, Cardiovascular, Respiratory and Gastrointestinal Exam Surgical H&P Exam: Normal: Heart, Normal: Lungs, Normal: Extremities and Normal: Abdomen Plan Diagnosis/Plan: Unchanged I have reviewed the history and physical and performed a pertinent physical examination on my patient. No changes have occurred unless specified. Time Spent With Patient Time: Total time managing care of this patient today ____ minutes.
[2025-01-11 10:09] VITALS: BP 118/94; PULSE 104; RESP 15; TEMP 36.5; O2SAT 96
[2025-01-11 10:11] LABS: Glucose, Whole Blood 128 mg/dL (60-115)
[2025-01-11] MEDS: Lactated Ringers 1,000 ML 100 ML IVCONT (10:28)
--- NOTE | 2025-01-11 11:29 | HO.OPN-COLON ---
Colonoscopy Operative Note Operative Note Date of Service: 01/11/25 Narrative: COLONOSCOPY TILL CECUM Pre-op diagnosis: Colon cancer screening (first colon). Post-op diagnosis:? Diverticulosis, hemorrhoids Endoscopist:? Chad Fulton MD Anesthesia:?MAC Consent: Indications for the procedure and potential complications of bleeding, perforation, reaction to medications and missed diagnosis were discussed with the patient and informed consent was obtained. Instrument: Olympus PCF H 190 L variable stiffness pediatric colonoscope Monitoring: Vital signs and clinical assessment, intermittent blood pressure monitoring, continuous EKG monitoring, Pulse oximetry and Carbon Dioxide monitoring were done throughout the procedure. Please see anesthesia flowsheet. Colon withdrawl time was 13 minutes. Procedure: The patient was placed in the left lateral decubitis position and pre-procedure medications were administered. After a digital rectal examination of the ano-rectum, the video colonoscope was inserted into the rectum and advanced through the colon to the cecum. The colonoscope was slowly withdrawn in a retrograde panoramic fashion and the colon mucosa was carefully examined including a retroflexed view of the rectum. Findings and interventions are described below. Procedure Difficulty: without difficulty Findings: Terminal Ileum: Not evaluated Cecum: Normal Ascending Colon: Normal Transverse Colon: Normal Descending Colon: Moderate diverticulosis Sigmoid Colon: Moderate diverticulosis Rectum: Normal Ano-rectum: Moderate internal hemorrhoids Colon preparation: Good after some irrigation. [place] Bowel Preparation Scale Right colon; 2 Transverse colon: 2 Left colon; 2 (0 = Unprepared colon segment with mucosa not seen due to solid stool that cannot be cleared. 1 = Portion of mucosa of the colon segment seen, but other areas of the colon segment not well seen due to staining, residual stool and/or opaque liquid. 2 = Minor amount of residual staining, small fragments of stool and/or opaque liquid, but mucosa of colon segment seen well. 3 = Entire mucosa of colon segment seen well with no residual staining, small fragments of stool or opaque liquid) Impression and Post Procedure Diagnosis: Colonoscopy Findings: No polyps were detected Moderate diverticulosis seen in the left colon Moderate hemorrhoids on retroflexed exam. Plan: Pt has a FU appointment on 04/02/25 with Natalie Cazares NP. Repeat Colonoscopy in 10 years (earlier if the patient develops any lower GI symptoms). Above findings were reviewed with the patient and relevant handouts were given and the discharge area. Patient was placed on the colonoscopy recall list for repeat colonoscopy in 10 years.
[2025-01-11 11:33] VITALS: BP 104/74; PULSE 110; RESP 18; TEMP 36.9; O2SAT 94
[2025-01-11 11:48] VITALS: BP 118/89; PULSE 101; RESP 18; TEMP 36.7; O2SAT 95
== END 2025-01-11 12:16 | disposition home or self-care (01) ==
PROVIDERS: Visit Provider Internal Medicine Gastroenterology
PROC: 0DJD8ZZ Inspection of Lower Intestinal Tract, Via Natural or Artificial Opening Endoscopic (ICD-10-PCS; CPT 45378; principal; 2025-01-11 10:20)
DX: Z12.11 Encounter for screening for malignant neoplasm of colon (principal); K57.30 Diverticulosis of large intestine without perforation or abscess without bleeding; K64.8 Other hemorrhoids; K59.04 Chronic idiopathic constipation; I10 Essential (primary) hypertension; E78.00 Pure hypercholesterolemia, unspecified; E11.9 Type 2 diabetes mellitus without complications; R00.0 Tachycardia, unspecified; G47.00 Insomnia, unspecified; F10.90 Alcohol use, unspecified, uncomplicated; Z79.85 Long-term (current) use of injectable non-insulin antidiabetic drugs; Z79.899 Other long term (current) drug therapy; Z98.890 Other specified postprocedural states
CPT/HCPCS: 45378; 82947; J2003; J2250; J2704; J3010

== ENCOUNTER → 2025-01-11 08:53 | Outpatient (BNV) | payer OTHER, SELFPAY | PROVIDERS: Visit Provider Internal Medicine Gastroenterology | DX: Z12.11 Encounter for screening for malignant neoplasm of colon (principal); K57.90 Diverticulosis of intestine, part unspecified, without perforation or abscess without bleeding; K64.8 Other hemorrhoids | CPT/HCPCS: 45378 ==